=== PATIENT | male | born 1975 | race Caucasian/White ===

== ENCOUNTER → 2020-07-26 07:40 | Outpatient (CLI) | payer OTHER, SELFPAY ==
--- NOTE | ~2020-07-26 | US_ITS ---
US abdomen complete DATE: 07/26/2020 08:22 INDICATION: Abdominal pain, constipation, diarrhea. Bloating, gas pressure. TECHNIQUE: Real-time imaging and Doppler analysis of the abdomen COMPARISON: None FINDINGS: There is fatty infiltration of liver. No hepatic space-occupying mass lesion is evident. No rmal hepatopedal portal venous flow direction. The pancreas is not well demonstrated due to overlapping bowel. 5 mm polyp in the posterior wall of the gallbladder is suggested. No mobile shadowing stones are evid ent. The common bile duct measures 5 mm, within normal limits. Right kidney measures 13.3 cm length, left kidney 14.9 cm. No renal mass lesion or hydronephrosis. The spleen measures up to 13.2 cm, upper limits of normal. The abdominal aorta is of normal caliber. Inferior vena cava is not well demonstrated. IMPRESSION: Hepatic steatosis 5 mm gallbladder polyp Reviewed, dictated and finalized at Location A. Reviewed, dictated and finalized at location B. PRESS OPERATOR
== END ==
PROVIDERS: PCP Family Medicine; Visit Provider Family Medicine
DX: K76.0 Fatty (change of) liver, not elsewhere classified (principal); K82.4 Cholesterolosis of gallbladder
CPT/HCPCS: 76700

== ENCOUNTER → 2020-09-22 01:00 | Outpatient (CLI) | payer OTHER, SELFPAY ==
[2020-09-22 19:48] LABS: SARS-CoV-2 RNA PCR Negative
== END ==
PROVIDERS: PCP Family Medicine; Visit Provider Internal Medicine Gastroenterology
DX: Z01.812 Encounter for preprocedural laboratory examination (principal); Z20.822 Contact with and (suspected) exposure to COVID-19
CPT/HCPCS: C9803; U0003; U0005

== ENCOUNTER 2020-09-26 00:50 | Day surgery (SDC) | payer OTHER, SELFPAY ==
[2020-09-18 14:57] VITALS: BMI 38.9
[2020-09-26 08:37] VITALS: BP 143/84; PULSE 75; RESP 20; TEMP 36.3; O2SAT 99
[2020-09-26 08:38] LABS: Glucose Point of Care 141 (65-105)
[2020-09-26] MEDS: LACTATED RINGERS 1,000 ML 150 ML IV CONT (08:38)
--- NOTE | 2020-09-26 09:39 | PM.HPGS ---
History of Present Illness History of Present Illness Consent: Risks, benefits, and alternatives have been discussed and questions answered. Patient agrees to proceed with procedure. Chief complaint: Abdominal pain, Bloating Narrative: Raúl Ohara is a 45 year old male with DM and bloating, also needs screening colonoscopy Review of Systems Constitutional: Constitutional: Denies headache(s) and Denies weakness Eyes: Eyes: Denies blurry vision ENT: Reports Normal hearing present, Denies headache(s) and Denies neck pain Cardiovascular: Cardiovascular: Denies chest pain and Denies dyspnea Respiratory: Respiratory: Denies dyspnea Gastrointestinal: Gastrointestinal: Reports no additional gastrointestinal complaints Genitourinary: Genitourinary: Denies dysuria Musculoskeletal: Musculoskeletal: Denies neck pain Integumentary/Breasts: Skin/Breast: Denies dry skin Neurologic: Reports Normal hearing present, Denies headache(s) and Denies weakness Psychiatric: Psychiatric: Denies anxiety Endocrine: Endocrine: Denies change in body appearance Hematologic/Lymphatic: Hematologic/Lymphatic: Denies easy bleeding Allergic/Immunologic: Allergic/Immunologic: Denies urticaria PMFSH Past Medical History Medical History (Updated 09/26/20 @ 09:57 by Gil Schultz MD) Bloating Colon cancer screening Hypertension Type 2 diabetes mellitus with diabetic polyneuropathy, without long-term current use of insulin Family History Family History Sibling Hypertension Sibling Hypertension Other Asthma Family history of Alzheimer's disease Family history of arthritis Family history of hearing loss Family history of lung cancer Social History Social History Smoking status: Never smoker Tobacco type: smokeless tobacco Smokeless tobacco user: chewing tobacco Alcohol intake: never Substance use: never Substance use type: does not use Living arrangements: with family Spiritual care concerns: No Meds Home Medications and Allergies Home Medications Medication Instructions Recorded Confirmed Type empagliflozin 10 mg tablet 10 mg PO DAILY #90 tablet 05/17/20 09/26/20 Rx ergocalciferol (vitamin D2) 50,000 unit PO WEEKLY 09/18/20 09/26/20 History metformin 500 mg PO DAILY 09/18/20 09/26/20 History Allergies Allergy/AdvReac Type Severity Reaction Status Date / Time No Known Allergies Allergy Verified 09/26/20 08:28 Vital Signs Vital Signs - 24 hr 09/26/20 08:37 Temperature 97.4 F L Pulse Rate 75 Respiratory Rate 20 Blood Pressure 143/84 H Pulse Oximetry 99 Exam Const: General: comfortable and no acute distress HENMT: General nose exam: Normal nares present Eyes: General: appearance normal, both eyes and all related structures Neck: Neck: no JVD Resp: Auscultation: clear to auscultation bilaterally Cardio: Rate: regular rate Rhythm: regular rhythm GI: Inspection: non-distended GI Palp: Yes Soft to palpation Skin: General skin exam: normal color Neuro: General: gait normal Speech: normal speech Extrem: General: normal to inspection Psych: Mental Status: mental status grossly normal Assessment and Plan Assessment and plan (1) Bloating: Code(s): R14.0 - Abdominal distension (gaseous) Status: Acute Assessment and Plan: egd with bx (2) Colon cancer screening: Code(s): Z12.11 - Encounter for screening for malignant neoplasm of colon Status: Acute Assessment and Plan: colonoscopy (3) Uncontrolled type 2 diabetes mellitus with hyperglycemia: Code(s): E11.65 - Type 2 diabetes mellitus with hyperglycemia Status: Acute
--- NOTE | 2020-09-26 09:44 | P.PNAN_ITS ---
Anes - Initial Pre Proc Eval Procedure: Operation Date: 09/26/20 10:00 Proposed Procedures p Esophagogastroduodenoscopy & Colonoscopy - Gil Schultz MD Date/Time: 09/26/20 09:44 Surgeon: Gil Schultz MD Pre Op Diagnosis: Abdominal pain, Bloating Patient Data Age: 45 Gender: M Height: 6 ft 4 in Weight: 139.3 kg Last Vital Signs Temp 97.4 F L 09/26/20 08:37 Pulse 75 09/26/20 08:37 Resp 20 09/26/20 08:37 BP 143/84 H 09/26/20 08:37 Pulse Ox 99 09/26/20 08:37 Allergies Allergy/AdvReac Type Severity Reaction Status Date / Time No Known Allergies Allergy Verified 09/26/20 08:28 Home Medications Medication Instructions Recorded Confirmed Type empagliflozin 10 mg tablet 10 mg PO DAILY #90 tablet 05/17/20 09/26/20 Rx ergocalciferol (vitamin D2) 50,000 unit PO WEEKLY 09/18/20 09/26/20 History metformin 500 mg PO DAILY 09/18/20 09/26/20 History Laboratory Tests 09/26/20 08:33 POC Capillary Glucose 141 mg/dl H mg/dl (65-105) Patient hx anesthesia problems: none Family hx anesthesia problems: none PMFSH Past Medical History Medical History (Updated 09/26/20 @ 09:44 by Richard Membreno MD) Hypertension Type 2 diabetes mellitus with diabetic polyneuropathy, without long-term current use of insulin Family History Family History Sibling Hypertension Sibling Hypertension Other Asthma Family history of Alzheimer's disease Family history of arthritis Family history of hearing loss Family history of lung cancer Social History Social History Smoking status: Never smoker Tobacco type: smokeless tobacco Smokeless tobacco user: chewing tobacco Alcohol intake: never Substance use: never Substance use type: does not use Living arrangements: with family Spiritual care concerns: No Anes - Eval Final PreProcedure Day of Procedure 09/26/20 09:44 Patient weight: obese Heart: regular rate and rhythm Lungs: clear to auscultation Airway: Mallampati scale class II Neurological: alert and oriented Last oral intake: >/= 8 hours ASA classification: III Emergent: no Anesthetic plan: proceed Anesthesia type and monitoring: general GIVS and standard monitoring Informed Consent: The patient's anesthetic plan and its attendant risks and benefits were discussed with the patient/family/POA. Questions were solicited a nd answers provided to the satisfaction of the patient/family/POA.
[2020-09-26] MEDS: BENZOCAINE (*SP) 60 ML SPRAY CAN (HURRICAINE) 1 SPRAY MUCOUS MEM (09:48)
--- NOTE | 2020-09-26 10:02 | SUR.OPER ---
EGD ENDED 955, COLONOSCOPY STARTED 1002
[2020-09-26 10:17] VITALS: BP 112/72; PULSE 64; RESP 16; O2SAT 100
[2020-09-26 10:27] VITALS: BP 117/70; PULSE 62; RESP 16; O2SAT 99
[2020-09-26 10:37] VITALS: BP 129/87; PULSE 68; RESP 18; O2SAT 98
[2020-09-26 10:47] VITALS: BP 140/89; PULSE 66; RESP 20; O2SAT 99
== END 2020-09-26 10:56 | disposition home or self-care (01) ==
PROVIDERS: PCP Family Medicine; Visit Provider Internal Medicine Gastroenterology
PROC: 0DJ08ZZ Inspection of Upper Intestinal Tract, Via Natural or Artificial Opening Endoscopic (ICD-10-PCS; CPT 43235; principal; 2020-09-26 10:00)
DX: Z12.11 Encounter for screening for malignant neoplasm of colon (principal); D12.0 Benign neoplasm of cecum; K63.5 Polyp of colon; K57.30 Diverticulosis of large intestine without perforation or abscess without bleeding; K64.8 Other hemorrhoids; K21.00 Gastro-esophageal reflux disease with esophagitis, without bleeding; R14.0 Abdominal distension (gaseous); I10 Essential (primary) hypertension; E11.42 Type 2 diabetes mellitus with diabetic polyneuropathy; Z79.84 Long term (current) use of oral hypoglycemic drugs; E66.9 Obesity, unspecified; Z68.37 Body mass index [BMI] 37.0-37.9, adult; F17.220 Nicotine dependence, chewing tobacco, uncomplicated
CPT/HCPCS: 45385; 45380; 43239; 82948; 88305; C9803; J2704; J7120; U0003; U0005

== ENCOUNTER 2021-02-12 08:06 | Emergency (ER) | payer OTHER, SELFPAY ==
--- NOTE | 2021-02-12 08:12 | ED.URI ---
HPI - URI/Sore Throat General Chief Complaint: Upper Respiratory Infection Stated Complaint: Sore Throat, coughing Time Seen by Provider: 02/12/21 08:13 Source: patient and RN notes reviewed History of Present Illness HPI Narrative: Patient is a 45-year-old male who presents the urgent care with complaints of ears clogged, sinus pressure, congestion, nonproductive cough and sore throat. Patient states is been ongoing for the last 2 days and he denies any fever, nausea, vomiting. Patient denies of any known contact with strep or Covid. States that he has been using Flonase without much improvement. Patient states he does have recurrent sinusitis. Patient states that his workplace wanted him swab for Covid. No other acute complaints. No acute distress noted. Patient aware of the plan of care. Some parts of this dictation were generated by voice recognition software and may contain typographical and/or grammatical inaccuracies. Related Data Home Medications Medication Instructions Recorded Confirmed ergocalciferol (vitamin D2) 50,000 unit PO WEEKLY 09/18/20 02/12/21 Allergies Allergy/AdvReac Type Severity Reaction Status Date / Time No Known Allergies Allergy Verified 11/02/20 14:53 Review of Systems Review of Systems: Narrative: CONSTITUTIONAL: Denies fever, chills, or sweats. EYES: Denies visual changes, redness, or discharge. ENT: Reports of sinus congestion, sinus pressure, sore throat and bilateral otalgia CARDIOVASCULAR: Denies chest pain, palpitations, or edema. RESPIRATORY: Reports of nonproductive cough without dyspnea GASTROINTESTINAL: Denies abdominal pain, nausea, vomiting, or diarrhea. GENITOURINARY: Denies dysuria or hematuria. SKIN: Denies rash or itching. MUSCULOSKELETAL: Denies back pain, joint pain, or myalgia. NEUROLOGIC: Denies headache, numbness, or weakness. All other systems reviewed are negative, except as documented in HPI. [facility] Past Medical History Medical History (Updated 02/12/21 @ 08:24 by ORA Montesinos) Bloating Colon cancer screening Hypertension IBS (irritable bowel syndrome) Type 2 diabetes mellitus with diabetic polyneuropathy, without long-term current use of insulin Family History Family History Sibling Hypertension Sibling Hypertension Other Asthma Family history of Alzheimer's disease Family history of arthritis Family history of hearing loss Family history of lung cancer Social History Social History Smoking status: Never smoker Tobacco type: smokeless tobacco Smokeless tobacco user: chewing tobacco Alcohol intake: never Substance use: never Substance use type: does not use Gender identity (if verbalized by the patient): Male Spiritual care concerns: No Comments At the time of my signature, I reviewed and agree with the nursing past medical, surgical, social, and family history. There is no relevant family history pertinent to the patient complaint. Exam Narrative: Exam Narrative: GENERAL: This is a well-nourished, well-developed patient, in no apparent distress. HEAD: normocephalic, atraumatic. Mild frontal sinus pressure EYES: PERRL. Sclera clear/white. Vision is grossly intact. EARS: External ears normal, auditory canals clear and without drainage, TMs normal without perforation. Hearing grossly intact. NOSE: External nose normal with no obvious nasal discharge, nares without redness, no rhinorrhea. THROAT: Mucous membranes moist, posterior pharynx clear. Moderate postnasal drainage NECK: Neck supple, non-tender without lymphadenopathy, masses or thyromegaly. CARDIOVASCULAR: Regular rate and rhythm without murmurs, gallops, or rubs. RESPIRATORY: Clear to auscultation. Breath sounds equal bilaterally. No wheezes, rales, or rhonchi. SKIN: warm, intact with no suspicious lesions or rash, good texture and turgor. NEURO
[2021-02-12 08:19] VITALS: BP 159/75; PULSE 76; RESP 18; TEMP 36.7; O2SAT 99
[2021-02-12 08:25] VITALS: BP 159/75
== END 2021-02-12 08:29 | disposition home or self-care (01) ==
PROVIDERS: Emergency Provider Nurse Practitioner Family; PCP Family Medicine
DX: J32.9 Chronic sinusitis, unspecified (principal); I10 Essential (primary) hypertension; E11.42 Type 2 diabetes mellitus with diabetic polyneuropathy
CPT/HCPCS: 87081; 87880; 99213; G0463

== ENCOUNTER 2021-04-01 13:55 | Outpatient (CLI) | payer OTHER, SELFPAY ==
--- NOTE | ~2021-04-01 | XR_ITS ---
XR chest 2V DATE: 04/01/2021 14:07 INDICATION: Shortness of breath for 2 weeks. Sinus infection. TECHNIQUE: PA and lateral views COMPARISON: None FINDINGS: There is mild infiltrate or atelectasis in the lateral left lower lung field. The lungs oth erwise appear clear. No pleural effusion or pulmonary vascular congestion or pneumothorax. Normal hea rt size. No hilar or mediastinal enlargement. There is mild dextro scoliosis of the thoracic spine. There is prominent degenerative spurring of the thoracic spine. IMPRESSION: Mild infiltrate or atelectasis in the lateral left lower lung Reviewed, dictated and finalized at location A.
== END 2021-04-01 13:56 | disposition home or self-care (01) ==
LOC: ANHBWCIMG 13:57
PROVIDERS: PCP Family Medicine; Visit Provider Family Medicine
DX: R06.2 Wheezing (principal); M41.9 Scoliosis, unspecified
CPT/HCPCS: 71046

== ENCOUNTER 2021-11-25 12:11 | Outpatient (CLI) | payer OTHER, SELFPAY ==
--- NOTE | ~2021-11-25 | XR_ITS ---
XR hip LT min 3V w AP pelvis DATE: 11/25/2021 12:29 INDICATION: Hip pain TECHNIQUE: AP pelvis. AP and lateral views of left hip. COMPARISON: None FINDINGS: No pelvic fracture or bone destruction. The pubic symphysis and sacroiliac joints are intac t. Mild bilateral hip osteoarthritis. No fracture or dislocation, avascular necrosis or bone destruction of left hip. IMPRESSION: Mild bilateral hip osteoarthritis Reviewed, dictated and finalized at location B.
== END 2021-11-25 12:12 | disposition home or self-care (01) ==
PROVIDERS: PCP Family Medicine; Visit Provider Family Medicine
DX: M16.0 Bilateral primary osteoarthritis of hip (principal)
CPT/HCPCS: 73502

== ENCOUNTER 2022-04-11 14:08 | Outpatient (CLI) | payer OTHER, SELFPAY ==
--- NOTE | ~2022-04-11 | XR_ITS ---
XR lumbar spine min 4V 04/11/2022 15:00 Indication: Low back pain Procedure: 5 views lumbar spine Comparison: No prior studies for comparison. Findings: There is disc narrowing at all lumbar levels. There is moderate facet hypertrophy at L4-5 a nd L5-S1. There is grade 1 degenerative spondylolisthesis at L4-5. No fracture or traumatic malalignm ent. Impression: 1: Moderate lumbar spondylosis. Reviewed, dictated and finalized at location A. Impression: 1: Moderate lumbar spondylosis.
== END 2022-04-11 14:09 | disposition home or self-care (01) ==
LOC: ANHBWCIMG 14:10
PROVIDERS: PCP Family Medicine; Visit Provider Family Medicine
DX: M47.896 Other spondylosis, lumbar region (principal)
CPT/HCPCS: 72110

== ENCOUNTER 2022-07-15 08:25 | Outpatient (CLI) | payer OTHER, SELFPAY ==
[2022-07-15 20:17] LABS: Hemoglobin A1C 6.3 % (<5.7)
== END 2022-07-15 08:26 | disposition home or self-care (01) ==
LOC: ANHBWCLAB 08:26
PROVIDERS: PCP Family Medicine; Visit Provider Family Medicine
DX: E11.65 Type 2 diabetes mellitus with hyperglycemia (principal)
CPT/HCPCS: 36415; 83036

== ENCOUNTER 2022-10-23 10:50 | Outpatient (CLI) | payer OTHER, SELFPAY ==
[2022-10-23 19:30] LABS: Vitamin D 25 Hydroxy 25.1 ng/mL
[2022-10-23 20:52] LABS: Hemoglobin A1C 5.8 % (<5.7)
== END 2022-10-23 10:51 | disposition home or self-care (01) ==
PROVIDERS: PCP Family Medicine; Visit Provider Family Medicine
DX: E11.8 Type 2 diabetes mellitus with unspecified complications (principal); R79.89 Other specified abnormal findings of blood chemistry
CPT/HCPCS: 36415; 82306; 83036

== ENCOUNTER 2023-01-30 08:25 | Outpatient (CLI) | payer OTHER, SELFPAY ==
[2023-01-30 20:43] LABS: Hemoglobin A1C 5.6 % (<5.7)
== END 2023-01-30 08:26 | disposition home or self-care (01) ==
LOC: ANHBWCLAB 08:28
PROVIDERS: PCP Family Medicine; Visit Provider Family Medicine
DX: E11.8 Type 2 diabetes mellitus with unspecified complications (principal)
CPT/HCPCS: 36415; 83036

== ENCOUNTER 2023-08-20 07:06 | Outpatient (CLI) | payer OTHER, SELFPAY ==
[2023-08-20 18:58] LABS: Alanine Aminotransferase 32 U/L (6-50); Albumin Level 4.1 g/dL (3.5-5.1); Alkaline Phosphatase 68 U/L (38-126); Anion Gap 8 mmol/L (8-16); Aspartate Amino Transferase 50 U/L (17-59); Bilirubin,Total 1.1 mg/dL (0.2-1.3); Blood Urea Nitrogen 24 mg/dL (9-20); Calcium 9.4 mg/dL (8.4-10.2); Carbon Dioxide 28 mmol/L (22-30); Chloride 100 mmol/L (98-107); Cholesterol 172 mg/dL (0-200); Estimated Glomerular Filt Rate > 60; Glucose 142 mg/dL (65-110); HDL Direct 47 mg/dL; Potassium 4.8 mmol/L (3.4-5.0); Sodium 136 mmol/L (137-145); Triglycerides 125 mg/dL (<150)
[2023-08-20 19:08] LABS: LDL Cholesterol Direct 104 mg/dL
[2023-08-20 19:33] LABS: Hemoglobin A1C 6.8 % (<5.7)
[2023-08-20 19:49] LABS: Vitamin D 25 Hydroxy 18.9 ng/mL
[2023-08-20 20:05] LABS: Creatinine Urine 124.8 mg/dL
[2023-08-20 20:26] LABS: MALB Creatinine Ratio 288.2 mg/g (0-30); Microalbumin Urine Random 359.7 mg/L (0-16.7)
== END 2023-08-20 07:07 | disposition home or self-care (01) ==
PROVIDERS: PCP Nurse Practitioner Adult Health; Visit Provider Family Medicine
DX: E11.9 Type 2 diabetes mellitus without complications (principal); R53.83 Other fatigue; R79.89 Other specified abnormal findings of blood chemistry; R14.0 Abdominal distension (gaseous); E55.9 Vitamin D deficiency, unspecified
CPT/HCPCS: 36415; 80053; 80061; 82043; 82306; 82607; 83036

== ENCOUNTER 2023-08-24 08:25 | Outpatient (CLI) | payer OTHER, SELFPAY ==
--- NOTE | ~2023-08-24 | XR_ITS ---
XR lumbar spine 2-3V DATE: 08/24/2023 08:46 INDICATION: Lower back pain TECHNIQUE: AP, lateral, coned lateral lumbosacral views COMPARISON: None FINDINGS: There is minimal thoracolumbar levoscoliosis. The included lower thoracic and lumbar pedicles appear intact. No fracture or bone destruction is detected. There is degenerative change of the pelvis joints particularly L4-5 and L5-S1 with associated minimal grade 1 anterolisthesis at L4-5. Mild degenerative spurring of the lumbar spine. Lumbar and lumbosacral interspaces are relatively pre served. The sacroiliac joints are intact IMPRESSION: Minimal thoracolumbar levoscoliosis Mild degenerative spurring of lumbar spine Degenerative changes apophyseal joints with associated minimal grade 1 anterolisthesis at L4-5 Reviewed, dictated and finalized at location B. PRESIDENT OF DEVELOPMENT IMPRESSION: Minimal thoracolumbar levoscoliosis Mild degenerative spurring of lumbar spine Degenerative changes apophyseal joints with associated minimal grade 1 anteroli sthesis at L4-5
[2023-08-24 18:21] LABS: Hematocrit 45.3 % (42.0-52.0); Hemoglobin 14.9 g/dL (14.0-18.0); Mean Corpuscular HGB Conc 32.9 g/dl (32-36); Mean Corpuscular Hemoglobin 31.1 pg (26-34); Mean Corpuscular Volume 94.6 fl (80-100); Platelet Count Result 234 k/mm3 (150-375); Red Blood Count 4.79 M/mm3 (4.6-6.20); Red Cell Distribution Width 12.5 % (11.5-14.5); White Blood Count 7.1 K/mm3 (4.5-10.0)
[2023-08-24 19:24] LABS: Prostate Specific Antigen 0.4 ng/mL (< OR = 4.0)
[2023-08-28 17:56] LABS: Testosterone Free 77.3 pg/mL (35.0-155.0); Testosterone Total 363 ng/dL (250-1100)
== END 2023-08-24 08:26 | disposition home or self-care (01) ==
PROVIDERS: PCP Family Medicine; Visit Provider Family Medicine
DX: E11.65 Type 2 diabetes mellitus with hyperglycemia (principal); E66.9 Obesity, unspecified; G62.9 Polyneuropathy, unspecified; I10 Essential (primary) hypertension; R79.89 Other specified abnormal findings of blood chemistry; E11.8 Type 2 diabetes mellitus with unspecified complications; M54.50 Low back pain, unspecified; N52.9 Male erectile dysfunction, unspecified
CPT/HCPCS: 36415; 72100; 84153; 84402; 84403; 85027; G0103

== ENCOUNTER 2024-02-18 06:58 | Outpatient (CLI) | payer OTHER, SELFPAY ==
[2024-02-18 19:16] LABS: Alanine Aminotransferase 20 U/L (6-50); Albumin Level 4.2 g/dL (3.5-5.1); Alkaline Phosphatase 56 U/L (38-126); Anion Gap 9 mmol/L (4-12); Aspartate Amino Transferase 57 U/L (17-59); Bilirubin,Total 1.2 mg/dL (0.2-1.3); Blood Urea Nitrogen 17 mg/dL (9-20); Calcium 9.3 mg/dL (8.4-10.2); Carbon Dioxide 26 mmol/L (22-30); Chloride 102 mmol/L (98-107); Estimated Glomerular Filt Rate > 60; Glucose 80 mg/dL (65-110); Potassium 3.9 mmol/L (3.4-5.0); Sodium 137 mmol/L (137-145)
[2024-02-18 19:52] LABS: Creatinine Urine 103.1 mg/dL
[2024-02-18 19:53] LABS: Hemoglobin A1C 5.5 % (<5.7)
[2024-02-18 19:57] LABS: MALB Creatinine Ratio 182.4 mg/g (0-30); Microalbumin Urine Random 188.1 mg/L (0-16.7)
[2024-02-18 20:03] LABS: Vitamin D 25 Hydroxy 40.7 ng/mL
== END 2024-02-18 06:59 | disposition home or self-care (01) ==
PROVIDERS: PCP Nurse Practitioner Adult Health; Visit Provider Family Medicine
DX: R79.89 Other specified abnormal findings of blood chemistry (principal); E11.65 Type 2 diabetes mellitus with hyperglycemia; E66.9 Obesity, unspecified; G62.9 Polyneuropathy, unspecified; I10 Essential (primary) hypertension
CPT/HCPCS: 36415; 80053; 82043; 82306; 83036

== ENCOUNTER 2024-02-25 09:52 | Outpatient (CLI) | payer OTHER, SELFPAY ==
[2024-03-03 10:27] LABS: Testosterone Free 58.8 pg/mL (35.0-155.0); Testosterone Total 401 ng/dL (250-1100)
== END 2024-02-25 09:53 | disposition home or self-care (01) ==
LOC: ANHBWCLAB 09:53
PROVIDERS: PCP Nurse Practitioner Adult Health; Visit Provider Nurse Practitioner Adult Health
DX: N52.9 Male erectile dysfunction, unspecified (principal)
CPT/HCPCS: 36415; 84402; 84403

== ENCOUNTER 2025-03-06 09:37 | Outpatient (CLI) | payer OTHER, SELFPAY ==
--- OUTSIDE RECORDS SUMMARY | 2025-03-06 10:19 | XMS_ITS | Clinical Summary ---
Author Organization [facility] [place] [place] [address] [facility] lt Address [address] [place] [address] Care Team Providers Care Tool Polisher Name Role Phone Alec Valles DO Primary Care Provider [phone] Allergies No known active allergies Medications cholecalciferol (VITAMIN D-3) 50,000 unit capsule Take 50,000 Units by mouth once a week Active Jardiance 25 mg tablet 03/17/2021 Active metFORMIN XR (GLUCOPHAGE XR) 500 mg 24 hr tablet Take 500 mg by mouth 2 (two) times a day 03/12/2021 Active omeprazole (PriLOSEC) 20 mg capsule Take 20 mg by mouth daily 01/01/2021 Active Active Problems No known active problems Surgical History Surgery Date Site/Laterality Comments TESTICLE SURGERY Medical History Medical History Date Comments Diabetes mellitus (HCC) Family History Medical History Relation Name Comments Hypertension Father Alzheimer's disease Mother Relation Name Status Comments Father Alive Mother Alive Social History Tobacco Use Types Packs/Day Years Used Date Smoking Tobacco: Former Cigarettes Smokeless Tobacco: Current Chew Personal Safety Answer Date Recorded Getting School Help Needed Not on file 08/15 Sex and Gender Information Value Date Recorded Sex Assigned at Not on file 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 Gender Identity Not on file Sexual Orientation Not on file Obstetrics History Last Filed Vital Signs Vital Sign Reading Time Taken Comments Blood Pressure 110/70 03/25/2021 9:21 AM CDT Pulse 83 03/25/2021 9:21 AM CDT Temperature 37.2 C (99 F) 03/25/2021 9:21 AM CDT Respiratory Rate 20 03/25/2021 9:21 AM CDT Oxygen Saturation 97% 03/25/2021 9:21 AM CDT Inhaled Oxygen Concentration - - Weight 137.1 kg (302 lb 3.2 oz) 03/25/2021 9:21 AM CDT Height 193 cm (6' 4) 03/25/2021 9:21 AM CDT Body Mass Index 36.78 03/25/2021 9:21 AM CDT Plan of Treatment Not on file Insurance CHOICE PLUS PPO [facility] HMO/PPO Address: [address] [place] [address] Care Teams Tool Polisher Relationship Specialty Start Date End Date Alec Valles DO PCP - General 11/04/18
--- OUTSIDE RECORDS SUMMARY | 2025-03-06 10:19 | XMS_ITS | Clinical Summary ---
Author Organization [facility] Address [address] [place] [address] Care Team Providers Care Plant Facilities Technician Name Role Phone Unavailable Primary Care Provider Unavailabl e Source Comments [facility],non-owned Affiliates and Associated Physician Practices is amultiple site organization consisting of ambulatory clinics and hospital sitesin [place], [place], [place] and [place]. This disclosure is being madepursuant to the Care Everywhere program and may not contain all information available regarding this patient. Last updated 18.[facility] Allergies No known active allergies Medications * Be aware that medications may not be up to date on this document. Alwaysverify current medications with the patient. metFORMIN ER 24hr (GLUCOPHAGE XR) 500 MG tablet Take 500 mg by mouth daily with dinner Active Cholecalciferol (VITAMIN D3) 1.25 MG (91697 UT) capsule Take 50,000 Units by mouth every 7 days Active fluticasone propionate (FLONASE) 50 MCG/ACT nasal spray [place] 2 sprays into each nostril once daily Active Active Problems Problem Noted Date Diagnosed Date Acute non-recurrent maxillary sinusitis 09/12/19 Diabetic polyneuropathy asso ciated with type 2 diabetes mellitus 10/19/2015 Family History Medical History Relation Name Comments Hypertension Father Other - Cardiac Mother irregular he art beat Relation Name Status Comments Father Alive Mother Alive Social History Tobacco Use Types Packs/Day Years Used Date Smoking Tobacco: Never Smokeless Tobacco: Current Chew Sex and Gender Information Value Date Recorded Sex Assigned at Not on file 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 Gender Identity Not on file Sexual Orientation Not on file Last Filed Vital Signs Vital Sign Reading Time Taken Comments Blood Pressure 134/82 09/12/2019 10:39 AM STEAM PRESSURE CHAMBER OPERATOR Pulse 92 09/12/2019 10:39 AM STEAM PRESSURE CHAMBER OPERATOR Temperature 37 C (98.6 F) 09/12/2019 10:39 AM STEAM PRESSURE CHAMBER OPERATOR Respiratory Rate 18 09/12/2019 10:39 AM STEAM PRESSURE CHAMBER OPERATOR Oxygen Saturation 98% 09/12/2019 10:39 AM STEAM PRESSURE CHAMBER OPERATOR Inhaled Oxygen Concentration - - Weight 143.8 kg (317 lb) 09/12/2019 10:39 AM STEAM PRESSURE CHAMBER OPERATOR Height 193 cm (6' 4) 09/12/2019 10:39 AM STEAM PRESSURE CHAMBER OPERATOR Body Mass Index 38.59 09/12/2019 10:39 AM STEAM PRESSURE CHAMBER OPERATOR Plan of Treatment Health Maintenance Due Date Last Done Comments COLOGUARD (AGES 45-75) - COL ON CA SCREENING 1973 COLON MONITORING 1973 COLONOSCOPY - COLON CA SCREENING 1973 CT COLONOGRAPHY - COLON CA SCREENING 1973 Colorectal Cancer Screening 1973 FIT - COLON CA SCREENING 1973 FLEX SIG - COLON CA SCREENING 1973 HIV SCREENING 1988 HEPATITIS C SCREENING 08/10/1991 DIABETES-SERUM CREATININE 1991 DTAP/TDAP/TD VACCINES (1 - Tdap) 1992 HEPATITIS B VACCINE (1 of 3 - 19+ 3-dose series) 1992 DIABETES-STATIN 2013 DIABETES-FOOT EXAM WITH MONOFILAMENT 04/07/2019 DIABETES-HGB A1C 04/07/2019 PNEUMOCOCCAL VACCINE 50+ (1 of 1 - PCV) 2023 ZOSTER VACCINE (1 of 2) 2023 COVID-19 VACCINE (1 - 2023-2 5 season) 2024 DEPRESSION SCREENING 07/20/2024 DIABETES - URINE PROTEIN SCREENING 07/20/2024 INFLUENZA VACCINE (#1) 2025 HIB VACCINE Aged Out No longer eligi ble based on patient's age to complete this topic HPV VACCINE Aged Out No longer eligi ble based on patient's age to complete this topic MENINGOCOCCAL (Group B) VACC INE SHARED DECISION-MAKING Aged Out No longer eligibl e based on patient's age to complete this topic MENINGOCOCCAL GROUPS A/C/Y/W VACCINE Aged Out No longer eligible b ased on patient's age to complete this topic Insurance [facility]
--- OUTSIDE RECORDS SUMMARY | 2025-03-06 10:19 | XMS_ITS | Clinical Summary ---
Author Organization [facility] Address [address] [place] [address] Phone Care Team Providers Care Oceanology Teacher Name Role Phone Alexander Castillo MD Primary Care Provider Unavail able Allergies No known active allergies Medications No known medications Active Problems Problem Noted Date Diagnosed Date Diabetic polyneuropathy asso ciated with type 2 diabetes mellitus 10/19/2015 Family History Medical History Relation Name Comments No Known Problems Father Marshall No Known Problems Mother Elsa Relation Name Status Comments Father Marhsall Alive Mother Elsa Alive Social History Tobacco Use Types Packs/Day Years Used Date Smoking Tobacco: Never Smokeless Tobacco: Current Alcohol Use Standard Drinks/Week Comments No 0 (1 standard drink = 0.6 oz pur e alcohol) Sex and Gender Information Value Date Recorded Sex Assigned at Not on file Legal Sex Male 11:04 PM CDT Gender Identity Not on file Sexual Orientation Not on file Last Filed Vital Signs Vital Sign Reading Time Taken Comments Blood Pressure 120/78 10/19/2015 2:06 PM CDT Pulse 84 10/19/2015 2:06 PM CDT Temperature 36.9 C (98.4 F) 10/19/2015 2:06 PM CDT Respiratory Rate - - Oxygen Saturation 98% 10/19/2015 2:06 PM CDT Inhaled Oxygen Concentration - - Weight 143.3 kg (316 lb) 10/19/2015 2:06 PM CDT Height 193 cm (6' 4) 10/19/2015 2:06 PM CDT Body Mass Index 38.46 10/19/2015 2:06 PM CDT Plan of Treatment Health Maintenance Due Date Last Done Comments Diabetes: Eye Exam 1973 Diabetes: Foot Exam 1973 Hepatitis C Virus (HCV) Screening 1973 TdaP Immunization 1973 Hepatitis B Immunization (1 of 3 - 19+ 3-dose series) 1992 Pneumococcal Immunization (5 0+ years) (1 of 2 - PCV) 1992 Diabetes: Hemoglobin A1c 04/19/2016 10/19/2015 Diabetes: Nephropathy Screening 08/09/2016 6 Cologuard 2018 Colonoscopy 2018 Colorectal Cancer Screening 2018 Immunochemical Fecal Occult Blood 2018 Zoster Immunization (1 of 2) 2023 SARS-COV-2 Immunization (1 - season) 2024 Influenza Immunization (#1) 2025 Respiratory Syncytial Virus (RSV) Immunization (Adult) (1 - 1-dose 75+ series) 2048 Human Papillomavirus (HPV) Immunization Aged Out No longer eligible b ased on patient's age to complete this topic Meningococcal Immunization (ACWY) Aged Out No longer eligible based on patient's age to complete this topic Rotavirus Immunization Aged Out No lo nger eligible based on patient's age to complete this topic Procedures Procedure Name Priority Date/Time Associated Diagnosis Comments HEMOGLOBIN A1C W/ ESTIMATED GLUCOSE Routine 10/19/2015 3:11 PM CDT Diabetic polyneuropathy associated with type 2 diabetes mellitus CMP (COMPREHENSIVE METABOLIC PANEL) Routine 08/09/2015 from Last 3 Months or Most Recently Relevant to Health Maintenance Results * (ABNORMAL) HEMOGLOBIN A1C W/ ESTIMATED GLUCOSE (10/19/2015 3:11 PM CDT) HGB-A1C 9.3(H) 4.4 - 6.4 % 10/19/2015 4:52 PM CDT [facility] Est Average Glucose 220.2 mg/dL 10/19/2015 4:52 PM CDT [facility] Blood specimen (specimen) Venipuncture / Unknown 10/19/2015 3:11 PM CDT 10/19/2015 4:18 PM CDT Narrative [facility] - 10/19/2015 4:52 PM CDT HEMOGLOBIN A1C: DIABETIC PATIENTS: WELL-CONTROLLED: 6.2 - 7.0 INTERMEDIATE WELL-CONTROLLED: 7.0 - 9.0 POORLY-CONTROLLED: >9.0 us Beltran Kennedy MD CHEMISTRY ORDERABLES Final R esult [facility] [address] [place] [address] * CMP (COMPREHENSIVE METABOLIC PANEL) (08/09/2015) Blood specimen (specimen) us Alexander Castillo MD CHEMISTRY ORDERABLES Final Res ult from Last 3 Months or Most Recently Relevant to Health Maintenance Insurance [employer] on file Care Teams Oceanology Teacher Relationship Specialty Start Date End Date Alexander Castillo MD PCP - General Family Medicine 09/11/15
[2025-03-06 19:30] LABS: Hemoglobin A1C 5.1 % (<5.7)
[2025-03-06 20:11] LABS: Alanine Aminotransferase 23 U/L (6-50); Albumin Level 4.3 g/dL (3.5-5.1); Alkaline Phosphatase 62 U/L (38-126); Anion Gap 9 mmol/L (4-12); Aspartate Amino Transferase 45 U/L (17-59); Bilirubin,Total 0.6 mg/dL (0.2-1.3); Blood Urea Nitrogen 27 mg/dL (9-20); Calcium 9.3 mg/dL (8.4-10.2); Carbon Dioxide 23 mmol/L (22-30); Chloride 105 mmol/L (98-107); Cholesterol 149 mg/dL (0-200); Estimated Glomerular Filt Rate 57; Glucose 83 mg/dL (65-110); HDL Direct 45 mg/dL; Potassium 4.8 mmol/L (3.4-5.0); Sodium 137 mmol/L (137-145); Total Protein 7.6 g/dL (6.3-8.2); Triglycerides 46 mg/dL (<150)
[2025-03-07 16:03] LABS: MALB Creatinine Ratio 36.6 mg/g (0-30)
== END 2025-03-06 09:38 | disposition home or self-care (01) ==
LOC: ANHBWCLAB 09:38
PROVIDERS: PCP Nurse Practitioner Adult Health; Visit Provider Nurse Practitioner Adult Health
DX: R79.89 Other specified abnormal findings of blood chemistry (principal); E11.9 Type 2 diabetes mellitus without complications
CPT/HCPCS: 36415; 80053; 80061; 82043; 82306; 82565; 83036

== ENCOUNTER 2025-03-16 06:30 | Outpatient (CLI) | payer OTHER, SELFPAY ==
--- OUTSIDE RECORDS SUMMARY | 2025-03-16 06:32 | XMS_ITS | Clinical Summary ---
Author Organization [facility] Address [address] [facility], [place] [address] Phone Care Team Providers Care Mild Disabilities Teacher Name Role Phone Alexander Castillo MD Primary Care Provider Unavail able Allergies No known active allergies Medications No known medications Active Problems Problem Noted Date Diagnosed Date Diabetic polyneuropathy asso ciated with type 2 diabetes mellitus 10/19/2015 Family History Medical History Relation Name Comments No Known Problems Father Marshall No Known Problems Mother Elsa Relation Name Status Comments Father Marshall Alive Mother Elsa Alive Social History Tobacco [...] 6.4 % 10/19/2015 4:52 PM CDT [facility] Est Average Glucose 220.2 mg/dL 10/19/2015 4:52 PM CDT [facility] Blood specimen (specimen) Venipuncture / Unknown 10/19/2015 3:11 PM CDT 10/19/2015 4:18 PM CDT Narrative [facility] - 10/19/2015 4:52 PM CDT HEMOGLOBIN A1C: DIABETIC PATIENTS: WELL-CONTROLLED: 6.2 - 7.0 INTERMEDIATE WELL-CONTROLLED: 7.0 - 9.0 POORLY-CONTROLLED: >9.0 us Beltran Kennedy MD CHEMISTRY ORDERABLES Final R esult [facility] [address] [place] [address] * CMP (COMPREHENSIVE METABOLIC PANEL) (08/09/2015) Blood specimen (specimen) us Alexander Castillo MD CHEMISTRY ORDERABLES Final Res ult from Last 3 Months or Most Recently Relevant to Health Maintenance Insurance [employer] on file Care Teams Mild Disabilities Teacher Relationship Specialty Start Date End Date Alexander Castillo MD PCP - General Family Medicine 09/11/15
--- OUTSIDE RECORDS SUMMARY | 2025-03-16 06:32 | XMS_ITS | Clinical Summary ---
Author Organization [facility] Address [address] [place] [address] Care Team Providers Care Landscape Engineer Name Role Phone Unavailable Primary Care Provider Unavailabl e Source Comments [facility],non-owned Affiliates and Associated Physician Practices is amultiple site organization consisting of ambulatory clinics and hospital sitesin [place], [place] and [place]. This disclosure is being madepursuant to the Care Everywhere program and may not contain all information available regarding this patient. Last updated 18.[facility] Allergies No known active allergies Medications * Be aware that medications may not be up to date on this document. Alwaysverify current medications with the patient. 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 Gender Identity Not on file Sexual Orientation Not on file Last Filed Vital Signs Vital Sign Reading Time Taken Comments Blood Pressure 134/82 09/12/2019 10:39 AM PERMIT AGENT Pulse 92 09/12/2019 10:39 AM PERMIT AGENT Temperature 37 C (98.6 F) 09/12/2019 10:39 AM PERMIT AGENT Respiratory Rate 18 09/12/2019 10:39 AM PERMIT AGENT Oxygen Saturation 98% 09/12/2019 10:39 AM PERMIT AGENT Inhaled Oxygen Concentration - - Weight 143.8 kg (317 lb) 09/12/2019 10:39 AM PERMIT AGENT Height 193 cm (6' 4) 09/12/2019 10:39 AM PERMIT AGENT Body Mass Index 38.59 09/12/2019 10:39 AM PERMIT AGENT Plan of Treatment Health Maintenance Due Date [...] patient's age to complete this topic Insurance [facility]
--- OUTSIDE RECORDS SUMMARY | 2025-03-16 06:32 | XMS_ITS | Clinical Summary ---
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
[2025-03-16 18:53] LABS: Albumin Level 4.2 g/dL (3.5-5.1); Anion Gap 7 mmol/L (4-12); Blood Urea Nitrogen 20 mg/dL (9-20); Calcium 9.4 mg/dL (8.4-10.2); Carbon Dioxide 28 mmol/L (22-30); Chloride 102 mmol/L (98-107); Estimated Glomerular Filt Rate > 60; Glucose 86 mg/dL (65-110); Potassium 4.9 mmol/L (3.4-5.0); Sodium 137 mmol/L (137-145)
== END 2025-03-16 06:31 | disposition home or self-care (01) ==
PROVIDERS: PCP Nurse Practitioner Adult Health; Visit Provider Nurse Practitioner Adult Health
DX: N28.9 Disorder of kidney and ureter, unspecified (principal)
CPT/HCPCS: 36415; 80069